=== PATIENT | male | born 1940 | race Caucasian/White ===

== ENCOUNTER → 2016-09-14 | Outpatient (CLI) | payer OTHER ==
[~2016-09-14] MED LIST: AMLO-114 PO; AMLO-3 PO; ASPI81TA28 PO; ATOR-22 PO; ATOR-26 PO; BENICAR 20 MG PO; BNC/20125 PO; CHOL100010 PO; CRFL PO; ERGO500037 PO; METO-478 PO; METO50TA16 PO; NTRGSL/4 UT; NXM/40 PO; RANO500T PO; SERT50TA PO
[2016-09-14 13:30] LABS: PROTHROMBIN TIME (PATIENT) 10.5 SECONDS (9.0-12.0)
[2016-09-14 13:32] LABS: HEMATOCRIT 39.7 % (42-52); MEAN CELL VOLUME 75.3 fL (80-100); MEAN CORPUSCULAR HEMOGLOBIN 23.1 pg (25-34); MEAN CORPUSCULAR HGB CONC 30.7 g/dl (32-36); PLATELET COUNT 190 K/uL (130-400); RED BLOOD COUNT 5.27 M/uL (4.7-6.1); WHITE BLOOD COUNT 6.75 K/uL (4.8-10.8)
[2016-09-14 13:34] LABS: URINE APPEARANCE CLEAR (CLEAR); URINE BILIRUBIN NEG (NEG); URINE COLOR YELLOW; URINE NITRITE NEG (NEG); URINE SPECIFIC GRAVITY 1.019 (1.000-1.030); UROBILINOGEN NEG (NEG)
[2016-09-14 13:41] LABS: URINE PROTIEN/CREAT RATIO 0.2 (0-0.2); URINE TOTAL PROTEIN 29.5 mg/dl (0-11.9)
[2016-09-14 13:58] LABS: MANUAL MICROSCOPIC REQUIRED? NO; REVIEW REQ? NO
[2016-09-14 14:31] LABS: BLOOD UREA NITROGEN 27 mg/dl (7-18); BUN/CREATININE RATIO 15.6 (10-20); CALCIUM 9.4 mg/dl (8.5-10.1); CARBON DIOXIDE 26 mmol/L (21-32); CHLORIDE 105 mmol/L (98-107); GLUCOSE 119 mg/dl (70-99); POTASSIUM 4.6 mmol/L (3.5-5.1); SODIUM 140 mmol/L (136-145)
== END | disposition home or self-care (01) ==
LOC: C.LABMFLN 08:05
PROVIDERS: ATTEND Internal Medicine Nephrology
DX: I10 Essential (primary) hypertension (principal); E55.9 Vitamin D deficiency, unspecified; N25.81 Secondary hyperparathyroidism of renal origin; N18.2 Chronic kidney disease, stage 2 (mild)

== ENCOUNTER → 2016-09-17 | Day surgery (SDC) | payer OTHER ==
[~2016-09-17] VITALS: Ht 172.7 cm; Wt 98.0 kg
[~2016-09-17] MED LIST changes: +ACETAMINOPHEN 325 MG TAB PO PRN; +FENTANYL CITRATE INJ 50 MCG/1 ML 2 ML VIAL ONE; +ONDANSETRON INJ 2 MG/ML 2 ML VIAL IV PRN; +SODIUM CHLORIDE 0.9% 1000ML 1,000 ML IV SCH; +SODIUM CHLORIDE 0.9% 1000ML 250 ML IV PRN
[2016-09-17 06:50] VITALS: BP 134/89; PULSE 54; TEMP 36.8; O2SAT 97; Ht 172.7 cm; Wt 98.0 kg
--- NOTE | 2016-09-17 09:44 | Procedure Note ---
Pre-Mod Sedation Assessment General Date of Moderate Sedation: Sep 17, 2016. Vital Signs: Vital Signs Past 12 Hours Date Time Temp Pulse Resp B/P Pulse Ox O2 Delivery O2 Flow Rate FiO2 09/17/16 06:50 36.8 54 18 134/89 97 Room Air 97 Review Cardiovascular: regular rate, rhythm, no murmur Abdomen: soft Lungs: lungs clear Pre-Sedation Airway Assessment Oral Cavity: Dentures Short Thick Neck: No Hx of Sleep Apnea: No Smoking Status: Never Smoker Procedure Planning Contraindications-for Mod Sed: None Yes Notes The planned sedation has been discussed with the patient and consent obtained. I have identified the patient, determined the appropriateness of sedation and have assessed the patient immediately prior to the procedure. All medicine(s) and interventions are by my order.
--- NOTE | 2016-09-17 09:45 | History & Physical Bridge Note ---
H&P Re-Evaluation Bridge Note: I have examined the patient, reviewed the History & Physical and in the interval since the performance of the History & Physical I have noted the following changes of clinical significance: Ranexa was further titrated. Symptoms improved but still remained, otherwise, no changes noted
[2016-09-17] MEDS: MIDAZOLAM HCL 1 MG/ML 2ML VIAL ONE (12:40)
--- NOTE | 2016-09-17 14:15 | Procedure Note ---
Post-Mod Sedation Assessment General Date of Moderate Sedation Sep 17, 2016. Vital Signs: Vital Signs Past 12 Hours Date Time Temp Pulse Resp B/P Pulse Ox O2 Delivery O2 Flow Rate FiO2 09/17/16 14:00 52 20 120/81 92 Room Air 09/17/16 11:53 50 16 120/73 96 09/17/16 06:50 36.8 54 18 134/89 97 Room Air 97 Review - Discharge Criteria Vital Signs Stable: Yes Alert/Oriented/Conversant: Yes Returned to Baseline Mental St: Yes Nausea Absent/Minimal: Yes Pain/Discomfort/Absent/Minimal: Yes Normal/Baseline Respirations: Yes Active Bleeding?: No
--- NOTE | 2016-09-17 14:35 | Cardiac Catheterization ---
Procedure Note Procedure Date Sep 17, 2016. Pre-Procedure Diagnosis CAD (with worsening dyspnea on exertion) AUC Score 7 Post-Procedure Diagnosis Severe CAD, Elevated Intracardiac Pressures Procedure(s) Performed Coronary Angiography, Left Heart Cath, Ultrasound Guided Vascular Access Rn Ent Dr. Hilario It Infrastructure Architect(s) Katherine Estimated Blood Loss < 20 ml Medication(s) Fentanyl, Versed, Lidocaine 1% Summary of Findings Coronary angiography: 1. Left main coronary artery: LMCA distal 20%. Very long and large caliber left main coronary artery. 2. Left anterior descending: LAD is large and extends to the apex. There are diffuse heavy calcification throughout the LAD, extending nearly out to the apex. The distal LAD is diffusely diseased moderately, approximately 50% with focal 90% stenosis and RAJEEV 3 flow. There is a medium caliber D1 with proximal 40% stenosis. 3. Circumflex: The circumflex is a large caliber vessel and also heavily calcified. It gives rise to a large OM1. No significant occlusive CAD noted angiographically within the circumflex system. 4. Ramus intermedius: Large caliber ramus intermedius with calcifications. No significant occlusive CAD noted angiographically. 5. Right coronary artery: The RCA is dominant. Proximal RCA is diffusely diseased moderately, approximately 50% followed by mid RCA 100% with mild right to right bridging collaterals followed by mid to distal 100% RCA occlusion. RCA is heavily calcified. [id number] collaterals noted. Left heart catheterization: 1. No significant aortic stenosis. Peak to peak gradient across the aortic valve was 0 mmHg. 2. Ventriculography was not performed to limit contrast due to chronic kidney disease. 3. Moderately elevated LVEDP; 20 mmHg. He was hydrated with IV fluids for 5-6 hours prior to the procedure given renal insufficiency. Procedural details: 1. Coronary angiography was performed via the right femoral artery due to the fact that the right radial arterial approach was unsuccessful in the past. 2. Tortuous abdominal aorta Ultrasound guidance: 1. Vascular ultrasound guidance was used to cannulate the right femoral artery with 5 [place] sheath, without known complication. Impression: 1. Severe CAD involving the RCA and distal LAD, with similar findings compared to 01/05/2013 coronary angiography. 2. Heavy calcifications involving RCA, circumflex, and LAD, extending toward the apex. 3. Moderately elevated LVEDP following several hours of IV hydration given chronic kidney disease. 4. No significant aortic stenosis. Plan: 1. Interventional Cardiology reviewed images. Due to the dense calcifications in the distal LAD and the fact that his symptoms have improved with medical therapy, continuation of medical therapy was recommended. He remains symptomatic, dyspnea with exertion. Will titrate Ranexa. He did not tolerate nitrate therapy. Beta-moo will not be further titrated due to resting bradycardia. 2. If his symptoms worsen, or quality of life is not acceptable due to symptoms concerning for ischemic heart disease, PCI can be attempted. It was recommended that this be performed at a tertiary care center due to heavy calcifications. Hemodynamics Rest Ao: 137/71 Final Ao: 123/76 LV: 119/7/20 Recommendations Medical therapy and/or Counseling Specimens None Radiation Exposure (mGy) 1420 mGy. Fluoro time 6.4 min. Contrast (mls) 60 ml Visipaque Procedural Complication(s) None Disposition Hearings Reporter Holding/Recovery ACC Data Cardiac Status Clinical evaluation leading to the procedure CAD Presntation: Stable angina (dyspnea on exertion) Anginal Classification: CCS III Heart Failure: No Cardiogenic Shock w/in 24Hrs: No Cardiac Arrest w/in 24Hrs: No Imaging studies past 6 months: No Stress studies past 6 months: No Standard Exercise Stress Test: No Stress Echocardiogram: No Stress Testing w/SPECT MPI: No Cardiac CTA: No Coronary Anatomy Dominant: Right Left Main (% Stenosis): Distal (20%) LAD (% Stenosis): Distal (diffusely 50% with focal 90%) D1 (% Stenosis): Proximal (40%) Circumflex (% Stenosis): Normal (no significant occlussive disease but calcified vessel) RCA (% Stenosis): Proximal (50%), Mid (100%) Ramus (% Stenosis): Normal (calcified) Left Ventricular Angiography EF (%): n/a Diagnostic Physician's Name: Davion Hilario MD Status: Elective Closure Device Percutaneous Entry Location: Femoral Closure Device: none - manual hold Recommendations: Medical therapy and/or Counseling
--- NOTE | 2016-09-17 14:47 | Discharge Instructions ---
Discharge Instructions Date of Service Sep 17, 2016. Visit Reason for Visit: Cardiac catheterization. Discharge Discharge Diagnosis / Problem: Severe coronary artery disease. Discharge Goals Goal(s): Diagnostic testing Medications Restart Stopped Medication(s): Resume usual medications with increase in Ranexa as listed. Activity Recommendations Activity Limitations: per Instructions/Follow-up section Anesthesia . Post Anesthesia Instructions: If you have had General Anesthesia or IV Sedation: * Do not drive today. * Resume driving when surgeon permits. * Do not make important decisions or sign legal documents today. * Call surgeon for: 1. Temperature elevations greater than 101 degrees F. 2. Uncontrollable pain. 3. Excessive bleeding. 4. Persistent nausea and vomiting. 5. Medication intolerance (nausea, vomiting or rash). * For nausea and vomiting use only clear liquids such as: tea, soda, bouillon until nausea subsides, then gradually increase diet as tolerated. * If you have any concerns or questions, call your surgeon's office. If physician is unavailable and it is an emergency, call 911 or go to the nearest emergency room. . Instructions / Follow-Up Instructions / Follow-Up ACTIVITY RECOMMENDATIONS: Excess manipulation of the wrist should be avoided for the next 24-48 hours. * No lifting over 2 pounds (approximately a 1/2 gallon of milk) with the utilized arm for 24 hours. * No strenuous activity such as bowling or tennis for 3 days. * Keep the site of the procedure covered with a bandage for 24 hours. *You may shower the day after the procedure. Do not take a tub bath or submerge the puncture site in water for the next 3 days. *Do not operate any motorized equipment for 3 days. SPECIAL CARE INSTRUCTIONS: The site may be slightly bruised and sore following your procedure. Should any of the following occur, contact the Dr. who performed your procedure. 1. Redness/inflammation, swelling, chills, or fever, or colored drainage at procedure site within 3-7 days after your procedure. 2. Coldness, discoloration, ongoing numbness, severe pain, or swelling. Expect mild tingling of hand and tenderness at the puncture site for up to three days. If this persists beyond three days, or other symptoms develop, notify the Dr. who performed your procedure. BLEEDING: If the procedure site on your wrist begins to bleed, do not panic 1. Place 1 or 2 fingers firmly just slightly above the insertion site to stop the bleeding. You may be able to feel your pulse as you hold pressure. 2. Lift your finger after 5 minutes to see if the bleeding has stopped. 3. Once the bleeding has stopped, gently wipe the wrist area clean with a bandage. * If the bleeding from your wrist does not stop after 10 minutes, or if there is a large amount of bleeding or spurting, call 911 (do not drive yourself to the hospital). SKIN IRRITATION: * You may experience some redness and/or swelling in the area where radiation was administered. If any skin irritation occurs, please contact your family physician. FOLLOW UP VISIT: Keep any scheduled doctor appointments. Diet Recommendations Recommended Home Diet: low cholesterol Procedures Procedures Performed: 1. Coronary angiography and left heart catheterization Pending Studies Studies pending at discharge: no Medical Emergencies . Who to Call and When: Medical Emergencies: If at any time you feel your situation is an emergency, please call 911 immediately. . Non-Emergent Contact Non-Emergency issues call your: Testing Coordinator . . "Provider Documentation" section prepared by Davion Belcher. .
[2016-09-17 18:00] VITALS: BP 127/71; PULSE 59; O2SAT 97
== END | disposition home or self-care (01) ==
LOC: C.CATH 06:09
PROVIDERS: ATTEND Internal Medicine Cardiovascular Disease
DX: I25.10 Atherosclerotic heart disease of native coronary artery without angina pectoris (principal); R06.02 Shortness of breath; E78.5 Hyperlipidemia, unspecified; I12.9 Hypertensive chronic kidney disease with stage 1 through stage 4 chronic kidney disease, or unspecified chronic kidney disease; N18.2 Chronic kidney disease, stage 2 (mild); I47.2 Ventricular tachycardia; I25.2 Old myocardial infarction; F32.9 Major depressive disorder, single episode, unspecified; K22.70 Barrett's esophagus without dysplasia; Z79.899 Other long term (current) drug therapy

== ENCOUNTER → 2016-09-22 | Outpatient (CLI) | payer OTHER ==
[~2016-09-22] MED LIST changes: -ACETAMINOPHEN 325 MG TAB PO PRN; -AMLO-3 PO; -ATOR-22 PO; -BNC/20125 PO; -CRFL PO; -FENTANYL CITRATE INJ 50 MCG/1 ML 2 ML VIAL ONE; -METO-478 PO; -ONDANSETRON INJ 2 MG/ML 2 ML VIAL IV PRN; -SODIUM CHLORIDE 0.9% 1000ML 1,000 ML IV SCH; -SODIUM CHLORIDE 0.9% 1000ML 250 ML IV PRN
[2016-09-22 14:36] LABS: BLOOD UREA NITROGEN 27 mg/dl (7-18); CALCIUM 9.4 mg/dl (8.5-10.1); CARBON DIOXIDE 29 mmol/L (21-32); CHLORIDE 107 mmol/L (98-107); GLUCOSE 133 mg/dl (70-99); POTASSIUM 4.7 mmol/L (3.5-5.1); SODIUM 139 mmol/L (136-145)
== END | disposition home or self-care (01) ==
LOC: C.LABMFLN 11:43
PROVIDERS: ATTEND Internal Medicine Cardiovascular Disease
DX: N28.9 Disorder of kidney and ureter, unspecified (principal)

== ENCOUNTER → 2016-10-15 | Outpatient (CLI) | payer OTHER ==
[2016-10-15 12:47] LABS: HEMATOCRIT 37.5 % (42-52); MEAN CELL VOLUME 76.2 fL (80-100); MEAN CORPUSCULAR HGB CONC 31.5 g/dl (32-36); PLATELET COUNT 166 K/uL (130-400); RED BLOOD COUNT 4.92 M/uL (4.7-6.1); WHITE BLOOD COUNT 7.04 K/uL (4.8-10.8)
[2016-10-15 13:07] LABS: URINE APPEARANCE CLEAR (CLEAR); URINE BILIRUBIN NEG (NEG); URINE COLOR DK YELLOW; URINE NITRITE NEG (NEG); URINE SPECIFIC GRAVITY 1.023 (1.000-1.030); UROBILINOGEN NEG (NEG)
[2016-10-15 13:14] LABS: MANUAL MICROSCOPIC REQUIRED? NO; REVIEW REQ? NO
[2016-10-15 13:19] LABS: URINE PROTIEN/CREAT RATIO 0.1 (0-0.2); URINE TOTAL PROTEIN 29.8 mg/dl (0-11.9)
[2016-10-15 13:52] LABS: CALCIUM 9.4 mg/dl (8.5-10.1)
[2016-10-15 13:54] LABS: BLOOD UREA NITROGEN 28 mg/dl (7-18); BUN/CREATININE RATIO 15.6 (10-20); CARBON DIOXIDE 25 mmol/L (21-32); CHLORIDE 106 mmol/L (98-107); GLUCOSE 187 mg/dl (70-99); PHOSPHORUS 2.5 mg/dl (2.5-4.9); POTASSIUM 4.7 mmol/L (3.5-5.1); SODIUM 139 mmol/L (136-145)
== END | disposition home or self-care (01) ==
LOC: C.LABMFLN 09:28
PROVIDERS: ATTEND Internal Medicine Nephrology
DX: I12.9 Hypertensive chronic kidney disease with stage 1 through stage 4 chronic kidney disease, or unspecified chronic kidney disease (principal); N18.3 Chronic kidney disease, stage 3 (moderate); N25.81 Secondary hyperparathyroidism of renal origin; E55.9 Vitamin D deficiency, unspecified